=== PATIENT | male | born 1950 | race Caucasian/White ===

== ENCOUNTER 2017-03-03 07:54 | Emergency (ER) | payer MEDICARE, BC ==
[2017-03-03] MEDS ORDERED: Morphine INJ* 4 MG/ML 1 ML CARPUJECT IV ONE ×2 (08:27→10:06)
[2017-03-03] MEDS ORDERED: Ondansetron INJ* 2 MG/ML VIAL IV ONE (08:30)
[2017-03-03 09:01] LABS: Hematocrit 37 % (42-52); Hemoglobin 12.6 g/dl (14.0-18.0); Mean Corpuscular HGB Conc 34 g/dl (31-36); Mean Corpuscular Hemoglobin 30 pg (27-31); Mean Corpuscular Volume 88 fL (80-94); Mean Platelet Volume 7 um3 (7.4-10.4); Red Blood Count 4.16 10^6/ul (4.0-5.4); Red Cell Distribution Width 13 % (10.5-15); White Blood Count 10.4 10^3/ul (3.5-10.8)
[2017-03-03] MEDS ORDERED: Lidocaine 2% JELLY* 6 ML JELLY TOPICAL ONE (09:11)
[2017-03-03 09:13] LABS: Albumin 4.1 g/dL (3.2-5.2); Calcium 9.6 mg/dL (8.6-10.3); EGFR African American 96.4 (>60); Globulin 3.5 g/dL (2-4); Potassium 4.1 mmol/L (3.5-5.0); Total Bilirubin 0.7 mg/dL (0.2-1.0); Total Protein 7.6 g/dL (6.4-8.9)
[2017-03-03 09:44] LABS: Urine Bacteria Absent (Absent); Urine Bilirubin Negative (Negative); Urine Glucose Negative (Negative); Urine Nitrite Positive (Negative)
[2017-03-03] MEDS ORDERED: fentaNYL* 50 MCG/ML 2 ML VIAL (100 MCG VIAL) IV SLOW PU ONE (11:05)
[2017-03-03] MEDS ORDERED: fentaNYL* 50 MCG/ML 2 ML VIAL (100 MCG VIAL) ONE (11:09)
--- NOTE | 2017-03-03 15:33 | RAD ---
Indication: Urinary outlet obstruction in a patient with a history of prostate and colon cancer. Anaesthesia: Lidocaine 1% locally and IV fentanyl Antibiotic prophylaxis: The patient has been receiving p.o. ciprofloxacin prior to catheter placement. No additional antibiotic was administered. Procedure note and findings: The risks and benefits of the procedure were carefully explained to the patient and informed consent was obtained. The patient was appropriately positioned in the ultrasound suite and a formal time out was performed. Preliminary ultrasound was done confirming percutaneous access from the midline suprapubic region to the urinary bladder. Color flow imaging was obtained to ascertain there are no large pulsating vessels at the planned suprapubic catheter tract. The urinary bladder wall circumferentially measures 5 mm in thickness. The prevoid volume is 615 mL. The site was prepped and draped according to standard sterile precautions. Sterile precautions including cap, mask, gown and sterile gloves were utilized. The skin overlying the intended percutaneous catheter site was anesthetized with lidocaine. Under fluoroscopic control lidocaine was injected in the subcutaneous tissues and up to the urinary bladder wall to ensure adequate anesthesia. Under continuous sonographic control the suprapubic catheter was advanced into the urinary bladder according to the trocar technique. The needle was removed and appropriate intraluminal urinary bladder position was confirmed with immediate egress of urine. Sonographic imaging demonstrates the catheter properly positioned in the urinary bladder. The percutaneous catheter was secured to the skin with nonabsorbable suture and dressed with sterile gauze. The catheter was connected to external tubing and to a drainage bag set to gravity drainage. The post void volume is 102 mL. The patient tolerated the procedure well and was observed in the IR holding area prior to discharge. IMPRESSION: 1. Uncomplicated sonographically guided placement of a 14 Gauge Jose catheter in the lumen of the urinary bladder as described in the report. 2. Post void volume residual measures approximately 17%.
[2017-03-03 15:35] VITALS: BP 122/76
--- NOTE | 2017-03-03 15:46 | ED ---
Ketan Morales Angela, scribed for Emilio Bryant MD on 03/03/17 at 0822 . GI/ HPI - HPI Summary HPI Summary: This pt is a 66 y/o male accompanied by his sister presenting to [facility] c/o urinary urgency/frequency x3 days. He went to his PCP a couple of weeks ago in [place] for pelvic discomfort and was told he was constipated. He took magnesium citrate and had relief. Pt went to a urologist in [place] (Dr. Ruslan Lancaster) a week ago and was given antibiotics, ciprofloxacin BID, for a UTI. Pt notes he had relief but on Friday (3 days ago) started to notice he had a lot of urinary frequency. Normally he urinates 4 times at night, now he goes 10 times a night. He additionally c/o urinary incontinence, pelvic pain, bladder pain. Pt denies dysuria, fevers, vomiting, back pain, weakness in LE. He has been taking pyridium since last night with some relief. PMHx includes peripheral neuropathy, prostate CA with radiation. Per nurse, post void bladder scan shows 715 ML of urine in the bladder. - History of Current Complaint Chief Complaint: EDUrogenitalProblems Time Seen by Provider: 03/03/17 08:06 Stated Complaint: PELVIC PAIN Hx Obtained From: Patient Onset/Duration: Started Days Ago, Still Present Timing: Constant, Lasting Days Pain Intensity: 10 - out of 10 Location of Pain: Other - pelvic and bladder Associated Signs and Symptoms: Positive: UTI Symptoms - urinary urgency and frequency, urinary incontinence. Negative: Back Pain, Weakness - in LE, Vomiting - Allergy/Home Medications Allergies/Adverse Reactions: Allergies Allergy/AdvReac Type Severity Reaction Status Date / Time No Known Allergies Allergy Verified 03/03/17 08:03 Home Medications: Home Medications Ciprofloxacin TAB* [Cipro 250 MG Tab*] 250 mg PO BID 03/03/17 [History Confirmed 03/03/17] Levothyroxine TAB* [Synthroid TAB*] 100 mcg PO QAM 03/03/17 [History Confirmed 03/03/17] Metoprolol Succinate XL TAB* [Toprol XL TAB*] 25 mg PO QPM 03/03/17 [History Confirmed 03/03/17] Rivaroxaban TAB(*) [Xarelto 20 mg] 20 mg PO QPM 03/03/17 [History Confirmed ] Tamsulosin CAP* [Flomax CAP*] 0.4 mg PO QAM 03/03/17 [History Confirmed 03/03/17 ] PMH/Surg Hx/FS Hx/Imm Hx Endocrine/Hematology History: Denies: Hx Diabetes Cardiovascular History: Denies: Hx Hypertension Neurological History: Reports: Hx Peripheral Neuropathy - Cancer History Cancer Type, Location and Year: Prostate CA - Surgical History Surgery Procedure, Year, and Place: abdominal surgery Infectious Disease History: No Infectious Disease History: Denies: Traveled Outside the [place] in Last 30 Days - Family History Known Family History: Positive: Other - father and brother: esophageal CA - Social History Alcohol Use: Weekly Hx Substance Use: No Substance Use Type: Reports: None Smoking Status (MU): Never Smoked Tobacco Review of Systems Negative: Fever, Chills Positive: Other - pelvic pain and bladder pain. Negative: Vomiting Positive: frequency, incontinence - urinary, urgency. Negative: dysuria Negative: Other - back pain Negative: Weakness - in LE All Other Systems Reviewed And Are Negative: Yes Physical Exam Triage Information Reviewed: Yes Vital Signs On Initial Exam: Initial Vitals Temp Pulse Resp BP Pulse Ox 98.5 F 89 20 128/64 96 03/03/17 07:58 03/03/17 07:58 03/03/17 07:58 03/03/17 07:58 03/03/17 07:58 Vital Signs Reviewed: Yes Appearance: Positive: Well-Nourished Skin: Positive: Warm, Skin Color Reflects Adequate Perfusion, Dry Eyes: Positive: Normal ENT: Positive: Normal ENT inspection Respiratory/Lung Sounds: Positive: Clear to Auscultation, Breath Sounds Present Cardiovascular: Positive: Normal, RRR Abdomen Description: Positive: Other: - suprapubic fullness. Negative: CVA Tenderness (R), CVA Tenderness (L) Male Genital Exam: Positive: other - Rectal exam: moderate to severe enlarged prostate Musculoskeletal: Positive: Normal, Strength/ROM Intact Neurological: Positive: Normal, Sensory/Motor Intact, Alert, Oriented to Person Place, Time Psychiatric: Positive: Normal Procedures - Procedure Summary Procedure Summary: Menendez catheter insertion by me: Pt has urinary retention, 700 CC per bladder scan. Used a #20 telugu and #16 telugu catheter, as well as a regular #14 catheter. Attempts were not successful. Urologist was paged. Diagnostics - Vital Signs Vital Signs Temp Pulse Resp BP Pulse Ox 03/03/17 07:58 98.5 F 89 20 128/64 96 - Laboratory Result Diagrams: 03/03/17 08:45 03/03/17 08:45 Lab Statement: Any lab studies that have been ordered have been reviewed, and results considered in the medical decision making process. - Ultrasound No standard instances Ultrasound Interpretation Completed By: Radiologist - Bladder US IMPRESSION: Official radiologist report is pending. Please see [facility]. GIGU Course/Dx - Course Assessment/Plan: Pt is a 66 y/o male who presents with urinary urgency and frequency x3 days. Bladder scan showed urinary retention of 715 CC of urine. I attempted to inset menendez catheter, but was unsuccessful. Urologist, Dr. Shaw , was paged. Dr. Shaw will come see the pt in the ED. Blood work shows hemoglobin of 12.6, hematrocrit of 37, sodium of 126, chloride of 92, glucose of 123. Urine shows specific gravity 1.005, 1+ blood, positive nitrate, and positive urobilinogen. In the ED course, the pt was given morphine, zofran and fentanyl. Dr. Shaw came to see the pt and urinary catheter was unable to be placed by him. Patient was sent to IR for suprapubic catheter placement. Pt will be discharged home and instructed to see his urologist tomorrow as soon as possible. - Diagnoses Provider Diagnoses: Urinary retention, Suprapubic tenderness - Physician Notifications Discussed Care Of Patient With: Andi Shaw Time Discussed With Above Provider: 09:41 Instructed by Provider To: Other - I discussed the pt's case with Dr. Shaw. He will come see the pt in the ED. Discharge - Discharge Plan Condition: Stable Disposition: HOME Patient Education Materials: Urinary Retention in Men (ED), How to Care for Your Suprapubic Catheter (ED) Referrals: Non Staff,Doctor [Primary Care Provider] - Additional Instructions: Make sure you call your urologist tomorrow for appointment MELISSA. Return to ED if worse. The documentation as recorded by the Ketan saleem Angela accurately reflects the service I personally performed and the decisions made by me, Emilio Bryant MD.
--- NOTE | 2017-03-03 19:59 | CONS ---
CC: Dr. Lancaster, urologist, [facility], [place], [place] * CONSULTATION NOTE: DATE OF CONSULT: 03/03/17 - EMERGENCY DEPT FINAL DIAGNOSES: 1. Urethral stricture. 2. Urinary retention. 3. Prostate cancer, status post external beam radiation therapy, and brachytherapy. PROCEDURE: Percutaneous placement of 14-gauge suprapubic catheter by [facility]iology on 03/03/17. HISTORY OF PRESENT ILLNESS: I was called by the emergency room staff to see this 66-year-old white male with urinary retention. The history was obtained from Mr. Ritter and his . No records are available on Mr. Ritter in our hospital or in our office. Mr. Ritter was diagnosed about 7 years ago with prostate carcinoma and he was treated with a course of external beam radiation therapy. He has been followed in [place] by the [facility]. He was recently noted to have a PSA recurrence and he was treated with brachytherapy at [facility]. He gives past history of colon resection and temporary colostomy for Ca of the colon, done by open surgery, through an infraumbilical midline incision. For the last several weeks, he has been having increasing voiding symptoms with some hesitancy and decreased urinary stream. He presented today to the emergency room in urinary retention. He did not have any fever, chills, or gross hematuria. Bladder scan confirmed urinary retention. Attempt by the staff at the emergency room to place a coude catheter were unsuccessful and urology consultation was obtained. Upon my examination, he was lying in bed and uncomfortable. The bladder was distended to the level of the umbilicus. There was an infraumbilical midline suprapubic incision reaching all the way to the pubic bone. Exam of the genitalia were normal. The rectal exam was not performed. I attempted placement of a 14 and 16 coude catheters, but this was not successful because of obstruction at the level of the posterior urethra. I tried to dilate the stricture with a 14 and 16-Sinhala coude tipped stiff catheters but that was not successful. The patient needed suprapubic catheter placement. Because of concern about adhesions from his colon surgery, I consulted Dr. Haines from Interventional Radiology to perform a bladder ultrasound and to place the suprapubic catheter himself. Dr. Haines placed a 14-gauge Jose percutaneous catheter placed under ultrasound guidance successfully draining more than 1,000 cc of urine. The patient felt very comfortable after the procedure, and he is discharged home. Mr. Ritter is going to need a cystoscopy and possible internal urethrotomy with the placement of a Roy catheter and removal of the suprapubic catheter. I gave the patient the option of continuing his care in [place] or going back to his urologist group in [place]. I instructed the ER staff to ask the patient to call my office or his urologist in [place] for an early appointment as the suprapubic catheter can get occluded. [id number]/CPS #: [id number] MTDD
== END 2017-03-03 15:33 | disposition home or self-care (01) ==
LOC: ED 07:54
DX: R33.9 Retention of urine, unspecified (principal); R10.2 Pelvic and perineal pain; Z85.46 Personal history of malignant neoplasm of prostate
CPT/HCPCS: 36415; 51100; 51102; 51701; 76857; 76942; 77002; 80053; 81003; 81015; 85025; 87086; 96374; 96375; 99285; J2270; J2405; J3010